=== PATIENT | male | born 1970 | race Caucasian/White ===

== ENCOUNTER 2023-12-06 21:19 | Inpatient (IN) | payer OTHER, SELFPAY ==
[2023-12-06] VITALS (7 sets, daily range): BP systolic 131–144; BP diastolic 84–91; BMI 30.9
[2023-12-06 20:03] LABS: % Basophils 0.4 % (0-2); % Eosinophils 0.8 % (0-6); % Immature Granulocytes 0.8 % (0-0.5); % Lymphocytes 32.5 % (20.5-51.1); % Monocytes 10.6 % (1.7-9.3); % Neutrophils 54.9 % (42.2-75.2); Absolute Eosinophils 0.1 10^3/uL (0-0.7); Absolute Immature Granulocytes 0.1 10^3/uL (0-0.05); Absolute Lymphocytes 2.7 10^3/uL (1.2-3.4); Absolute Monocytes 0.9 10^3/uL (0.1-0.6); Absolute Neutrophils 4.6 10^3/uL (1.4-6.5); Mean Corp Hgb Conc. 35.9 g/dL (33.0-37.0); Mean Platelet Volume 9.8 fL (7.4-10.4); Nucleated Red Blood Cells % 0 % (-); Platelet Count 307 10^3/uL (130-400); Red Blood Cell Count 4.38 10^6/uL (4.70-6.10); Red Cell Dist. Width 12.6 % (11.5-14.5); White Blood Cell Count 8.4 10^3/uL (4.8-10.8)
--- NOTE | 2023-12-06 20:14 | ED.GENMED ---
History of Present Illness
General
Chief Complaint: Cardiac Symptoms
Time Seen by Provider: 12/06/23 19:41
History of Present Illness
History of Present Illness:
53-year-old male without significant past medical history presenting to the emergency department for witnessed syncopal episode and abnormal cardiac rhythm. Patient reports he was at karate, when he became acutely dizzy and passed out. Episode was
witnessed and bystanders started CPR for concern of pulselessness. When medics arrived, patient was awake, trying to stand up. They put him on the monitor, noted that he was in a sustained ventricular tachycardia with heart rate in the 240s. He
was subsequently cardioverted with return to sinus rhythm. On arrival to the hospital, patient denies any chest pain, and denied any chest pain at time of syncope. Denies any difficulty breathing. Denies any recent illness or fever. Denies any
known family history of cardiac disease or personal history of cardiac disease. Denies ever having this issue in the past. Denies acute medical complaints.
Phy Exam
Physical Exam
Physical Exam:
General: Well-appearing, no clinical signs of dehydration, nontoxic and in no acute distress
HEENT: protecting airway
Neck: appears supple
CV: Normal heart rate, regular rhythm, no evidence of cyanosis
Resp: No accessory muscle use, no increased work of breathing, lungs clear to auscultation bilaterally
Abd: Soft and non-distended, no tenderness to palpation
Extremities: No deformities, no swelling, no erythema
Neuro: alert, no focal neurologic deficit
: deferred
Rectal: deferred
Psych: Normal affect
Skin: Intact
Course
Orders/Labs/Results
Orders:
Orders
12/06/23 19:57
Complete Blood Count/With Diff Urgent
Comprehensive Metabolic Panel Urgent
Magnesium Urgent
Phosphorus Urgent
TSH Reflex To Free T4 Urgent
Comment: ADD ON
Troponin I Urgent
12/06/23 20:22
Add On- LAB Urgent
Tests Added?: magnesium, phosphorus, TSH w/ reflex T4
12/06/23 20:45
Amiodarone [Cordarone] 150 mg Dextrose 5%/Water 100 ml [D5w] 100 ml IV NOW
Amiodarone [Cordarone] 900 mg DEXTROSE 5% PVC-free BAG [D5W PVC-free BAG] 500 ml IV NOW
Initial Dose in mg/min:: 1
Duration of initial dose (hours):: 6
Subsequent dose in mg/min:: 0.5
Duration of subsequent dose (hours):: 18
Maximum dose in mg/min:: 1
Hold and notify provider if:: Heart rate < 60 BPM or SBP < 90 mmHg or MAP < 60 mmHg
12/06/23 20:52
Chest X-ray Portable [CR Chest Portable - 1 View] Routine
Comment:
Reason For Exam: syncope, cpr
Reason Study Needs to be Portable: Unable to Transport
12/06/23 21:09
Admit/Transfer Patient As Directed
Co-Sign Provider:
Level of Care: Inpatient admission
Assign to:: ICU
Physician / Group: jatinder
Diagnosis: ventricular tachycardia
Reason for Hospitalization: ventricular tachycardia
Expected length of stay greater than two midnights?: Yes
ELOS- Estimated Length of Stay in days: 2
I certify the patient meets the requirements for IP care: Yes
Code Status As Directed
Resuscitation Status: Full Code
PRN Pain Medication Management As Directed
May give lesser potent ordered pain med per pt: Yes
preference::
Protocol:: Medication orders for pain may be administered in a
manner that supports deferring to patient preference
when the pt is:
- Requesting an ordered lesser potent pain medication.
Least to most potent pain medications are defined
as: acetaminophen < NSAID < tramadol < opioids
(morphine, oxycodone, hydromorphone).
- Requesting a lesser dose of the same medication IF
ORDERED.
- Requesting a less intrusive route of administration
if both routes are prescribed by the provider (PO <
IV).
12/06/23 21:10
Magnesium Oxide 500 mg PO NOW STA
Abnormal Lab Results
12/06/23
19:57
RBC 4.38 L 10^6/uL
(4.70-6.10)
MCH 32.0 H pg
(27.0-31.0)
Abs Immat Gran (auto) 0.1 H 10^3/uL
(0-0.05)
Absolute Monos (auto) 0.9 H 10^3/uL
(0.1-0.6)
Immature Gran % 0.8 H %
(0-0.5)
Monocytes % 10.6 H %
(1.7-9.3)
BUN 24 H mg/dl
(9-20)
Glucose 163 H mg/dl
(70-99)
Magnesium 1.4 L mg/dl
(1.6-2.3)
12/06/23 19:57
12/06/23 19:57
Vital Signs
Initial and Last Documented VS:
Initial Vital Signs
Temp Pulse Resp Pulse Ox
98.0 F 68 18 94
12/06/23 19:44 12/06/23 19:44 12/06/23 19:44 12/06/23 19:44
Last Documented Vital Signs
Temp Pulse Resp BP Pulse Ox
98.0 F 67 14 131/84 98
12/06/23 19:44 12/06/23 22:30 12/06/23 22:30 12/06/23 22:00 12/06/23 22:30
MDM/Problems Addressed
MDM/Problems Addressed:
53-year-old male without past medical history presenting after a witnessed syncopal episode, possible pulselessness, ventricular tachycardia with synchronized cardioversion. Vital signs on arrival are normal.
On exam, patient is well-appearing, denies any present chest pain or difficulty breathing. EKG obtained on patient's arrival, no STEMI criteria. Patient again with chest pain. Unclear etiology of patient's ventricular tachycardia episode, however
certainly concerning. Patient will remain on front desk monitor. Code cart at bedside. Will administer amiodarone. Will discuss with cardiology with plan for admission.
20:50 -in discussion with cardiology, advise holding off on amnio until seeing electrophysiology tomorrow, possible intervention. Advised ICU admission for continued close cardiac monitoring.
*EKG
Interpreted by ED Provider?: Yes
EKG Intrepretation Date: 12/06/23
EKG Intrepretation Time: 20:16
Interpretation: normal
Comparison EKG: no comparison EKG present
Heart Rate: 68
Rate: normal
Rhythm: sinus and PAC's
Longs: normal axis
Interval: normal interval
QRS Pattern: normal QRS
Ischemia: no ischemia
*Critical Care Note
Total Time (30-74mins, 75-104mins- exclusive of procedures): 35
comment:
The high probability of a clinically significant, sudden or life threatening deterioration of the cardiovascular system(s) required my full and direct attention, intervention and personal management. The aggregate critical care time was 35 minutes.
This time is in addition to time spent performing reported procedures but includes the following:
[x] Data Review and interpretation
[x] Patient assessment and monitoring of vital signs
[x] Documentation
[x] Medication orders and management
ED Attending Note
-
Portions of this chart may have been created with voice recognition software.� Occasional wrong word or��sound alike� substitutions may have occurred due to the inherent limitations of voice recognition software.
Discharge Plan
Departure
Patient Disposition: Admit
Date of Disposition: 12/06/23
Time of Disposition: 20:55
Presentation/result/management discussed w/ accepting MD/DO: Hospitalist
Patient with high blood pressure during this ER visit?: No
Condition: Fair
Discharge Problem:
Ventricular tachycardia, Cardiac arrest
Interventions
Interventions:
*Risk Screen - Suicide Last Done: 12/06/23 19:44
*General Assessment Last Done: 12/06/23 19:44
*Neglect/Abuse Screening Last Done: 12/06/23 19:44
ED- Fall Risk Assessment Last Done: 12/06/23 22:44
*Nursing Disposition Last Done: 12/06/23 22:44
ED- Pulmonary Assessment Last Done: 12/06/23 20:06
ED- Cardiac Assessment Last Done: 12/06/23 20:06
Discharge Date and Time
Discharge Date/Time: 12/06/23 22:44
[2023-12-06 20:27] LABS: Troponin I 0.026 ng/ml
[2023-12-06 20:36] LABS: ALT (SGPT) 23 U/L (0-50); AST (SGOT) 40 U/L (17-59); Albumin 4.4 g/dl (3.5-5.0); Alkaline Phosphatase 54 U/L (38-126); Blood Urea Nitrogen 24 mg/dl (9-20); Calcium 9.6 mg/dl (8.4-10.2); Carbon Dioxide 24 mmol/L (22-30); Chloride 99 mmol/L (98-107); Estimated Creatinine Clearance 117 ml/min; Glucose 163 mg/dl (70-99); Potassium 4.1 mmol/L (3.5-5.1); Sodium 136 mmol/L (135-145); Total Bilirubin 1.2 mg/dl (0.2-1.3); Total Protein 7.1 g/dl (6.3-8.2); eGFR > 60.00
--- NOTE | 2023-12-06 20:54 | CON.CAR ---
Addendum entered and electronically signed by Trey Root MD 12/06/23 21:09:
CV[facility] if available or ICU
Original Note:
Consultation
Consultation Request
Date/Time Consultation Requested: 12/06/2023 8 PM
Date/Time Consultation Performed: 12/06/2023 ABPM
Requesting Provider: Emergency department physician
Performing Provider: Dr. Root
Reason for Consultation: Wide-complex tachycardia
Medical History
-
History of Present Illness:
53-year-old male with no past cardiac history who was in his usual state of health today. He went to exercise at an [employer] gym he was exercising for about an hour including sparring/boxing. 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 While exercising he became
lightheaded and dizzy and put his hands on his knees and then had a syncopal event. Bystanders question if they felt a pulse and reportedly CPR was started but then patient woke up. He remembers trying to get up and feeling his heart racing.
Ambulance came and patient was noted to have wide-complex tachycardia. Heart rate to 220. Patient was awake and responsive ambulance crew shocked patient back in rhythm. He has remained in sinus rhythm and is currently without symptoms. He says
he feels a little tired but no chest pain or shortness of breath. He said no prior cardiac history no prior issues with heart racing syncope or near syncope. No family history of coronary artery disease or sudden .
Drinks 2 cups of coffee a day. He had 1 energy drink (Reign). Denies any additional supplements
Past medical history as noted above
Past Medical History
Past Medical History: None
Social History
Tobacco: Non-Smoker
Living: With Family (. Just dropped daughter off at [facility])
Family History
Family History: Reviewed & Not Pertinent
Allergies / Home Medications
Allergy/AdvReac Type Severity Reaction Status Date / Time
No Known Allergies Allergy Unverified 12/06/23 19:43
�Medication �Instructions �Recorded �Confirmed �Type
Nail Vitamin 1 tab PO DAILY 12/06/23 12/06/23 History
cholecalciferol (vitamin D3) 25 25 mcg PO DAILY 12/06/23 12/06/23 History
mcg (1,000 unit) tablet
Review of Systems
-
All other systems: Negative unless noted
Physical Exam
Vital Signs
Temp Pulse Resp BP Pulse Ox
98.0 F 72 17 138/86 96
12/06/23 19:44 12/06/23 19:47 12/06/23 19:45 12/06/23 19:47 12/06/23 19:47
Lab Results
12/06/23 19:57
12/06/23 19:57
Troponin I 0.026 ng/ml 12/06/23 19:57
Physical Exam
General: Well Developed, Well Nourished and No Apparent Distress
HEENT: Normocephalic, Anicteric and Other (Extraocular's intact pupils equal reactive to light)
Respiratory: Clear and Other (No wheezes rales or rhonchi)
Cardiac: Regular Rhythm
GI: Soft, Non Tender, Non Distended and Normal Bowel Sounds
Musculoskeletal: No Clubbing, No Cyanosis and No Edema
Skin: Warm, Dry and Rash (No rash)
Neuro: Awake and Alert
Hematologic/Lymphatic: No Lymphadenopathy
Impression / Plan
-
Wide-complex tachycardia.
-Heart rate 220
-Consistent with VT. Although patient had a syncopal episode this evening. He was awake in the ambulance when he was in VT at a rate of 220. Patient subsequently shocked back into rhythm
-Source of VT unclear.
-Patient currently in sinus rhythm. ECG with sinus rhythm QTc 440
-Reviewed with EP.
-Admit to ICU. If patient has recurrent VT then would give IV amiodarone bolus and then drip.
- Check TSH and magnesium
-serial troponins
-CXR with report of CPR
-Echocardiogram tomorrow
-Cardiac catheterization tomorrow.
-EP will assess. Patient will also likely need EPS this admission
.
Troponin - minimal elevation likely related to VT
Data Reviewed
-
EKG: Report Reviewed by me
Radiology: Other (ordered CXR)
Medical Tests (Nuc Med, Echo etc): Report Reviewed by me
Labs: Labs Reviewed by me
[2023-12-06 20:57] LABS: Magnesium 1.4 mg/dl (1.6-2.3); Phosphorus 4.5 mg/dl (2.5-4.5)
--- NOTE | 2023-12-06 21:13 | HPS.HSE ---
Family Physician
-
Family Physician: * NONE
Chief Complaint
-
syncope
History of Present Illness
53-year-old male without past medical history presenting for syncopal episode. Patient reports he was at karate when he became acutely dizzy and passed out. Episode was witnessed and bystander started CPR. When medics arrived patient was awake
and trying to stand up. He was placed on clinical research monitor and noted that he was in sustained ventricular tachycardia with heart rate in the 240s. He was subsequently cardioverted with return to sinus rhythm. On arrival to the hospital patient
denies any chest pain,
He states this morning he was having some left shoulder tightness and some shortness of breath. He denies any recent illness or fever. He denies vomiting or diarrhea. He has mild shortness of breath now. He denies any family history of cardiac
disease or personal history of cardiac disease.
He drinks alcohol occasionally on the weekends. He denies smoking or any drug use.
Denies any surgeries.
Medical History
Past Medical History
Past Medical History: Reports None
Past Surgical History: Reports None
Social History
Tobacco: Non-smoker
Alcohol: Occasional
Drug: None
Family History
Family History: Not pertinent
Allergies / Home Medications
Allergies reflects when Allergies were last updated in [facility].
Home Medications with original date entered in [facility]
Allergy/Medication List:
Allergies
Allergy/AdvReac Type Severity Reaction Status Date / Time
No Known Allergies Allergy Unverified 12/06/23 19:43
Home Medications
Nail Vitamin 1 tab PO DAILY 12/06/23
cholecalciferol (vitamin D3) 25 mcg (1,000 unit) tablet 25 mcg PO DAILY 12/06/23
Review of Systems
-
History Source: Patient
A 12 point ROS was completed and negative except as noted: Yes
Constitutional: Reports No Symptoms
EENT: Reports No Symptoms
Respiratory: Reports See HPI
Cardiac: Reports See HPI
Abdomen/GI: Reports No Symptoms
: Reports No Symptoms
Musculoskeletal: Reports No Symptoms
Skin: Reports No Symptoms
Neurological: Reports No Symptoms
Endocrine: Reports No Symptoms
Hematologic/Lymphatic: Reports No Symptoms
Psych: Reports No Symptoms
Physical Exam
Vital Signs
Vital Signs
Temp Pulse Resp BP Pulse Ox
98.0 F 72 17 138/86 96
12/06/23 19:44 12/06/23 19:47 12/06/23 19:45 12/06/23 19:47 12/06/23 19:47
Physical Exam
General: Well Developed, Well Nourished and No Apparent Distress
HEENT: NormoCephalic, Moist mucous membranes and Atraumatic
Respiratory: Clear
Cardiac: S1/S2 and Regular Rhythm; No Murmur or Rub
GI: Soft, Non Tender, Non Distended and Normal Bowel Sounds; No Organomegaly
Rectal: Deferred by Provider
Musculoskeletal: No Clubbing, No Cyanosis and No Edema
Skin: No Rash
Neuro: Nonfocal/grossly intact
Laboratory Results
-
12/06/23 19:57
12/06/23 19:57
Laboratory Results
Total Bilirubin 1.2 mg/dl (0.2-1.3) 12/06/23 19:57
AST 40 U/L (17-59) 12/06/23 19:57
ALT 23 U/L (0-50) 12/06/23 19:57
Alkaline Phosphatase 54 U/L (38-126) 12/06/23 19:57
Troponin I 0.026 ng/ml 12/06/23 19:57
Data Reviewed
-
Lab Data: Labs Reviewed by me
Old Records: Reviewed
Impression/Plan
-
IMPRESSION:
PLAN:
# Witnessed syncopal episode secondary to sustained ventricular tachycardia
-Status post bystander CPR but awake to medics
-Status post cardioversion in the field
-Troponin unremarkable
-Cardiology recommended holding off amiodarone, catheterization/ablation tomorrow
-TSH pending
-Trend troponins
-Check chest x-ray
-Check echo
-N.p.o. past midnight
# Hypomagnesemia
-Magnesium repleted
Full code
DVT prophylaxis�heparin
Regular diet, n.p.o. past midnight
[2023-12-06 21:18] LABS: TSH Reflex To Free T4 3.29 uIU/ml (0.47-4.68)
[2023-12-06] MEDS: MAGNESIUM OXIDE 500 MG PO (21:28)
[2023-12-06] MEDS: ASPIRIN 325 MG PO (22:06)
--- NOTE | 2023-12-06 22:45 | PTCARENOTE ---
Addendum entered by Abdi Morris RN 12/07/23 00:24:
To add, defibrillation pads on patient
Original Note:
admitted pt from ER into 2268. Pt walked from stretcher to bed. Pt is AOx3. NSR on monitor, EKG completed NSR. No chest pain or dizziness. Vitals stable. Lungs clear. +BS. Urinal provided. PT NPO after midnight. troponin drawn and sent . plan of
care discussed, all questions answered. pt resting comfortably in bed with call mahan within reach
[2023-12-06] MEDS: MAGNESIUM SULFATE 50 IV (23:29)
[2023-12-06 23:41] LABS: Troponin I 0.081 ng/ml
[2023-12-07] VITALS (24 sets, daily range): BP systolic 101–160; BP diastolic 57–103
--- NOTE | 2023-12-07 04:40 | PTCARENOTE ---
labs drawn and sent. EKG completed sinus kaylene. no change in assessment. pt resting comfortably with call mahan within reach .
[2023-12-07 04:42] LABS: % Basophils 0.7 % (0-2); % Eosinophils 1.1 % (0-6); % Lymphocytes 23.8 % (20.5-51.1); % Monocytes 11.2 % (1.7-9.3); % Neutrophils 62.2 % (42.2-75.2); Absolute Basophils 0.1 10^3/uL (0-0.2); Absolute Eosinophils 0.1 10^3/uL (0-0.7); Absolute Immature Granulocytes 0.1 10^3/uL (0-0.05); Absolute Lymphocytes 1.7 10^3/uL (1.2-3.4); Absolute Monocytes 0.8 10^3/uL (0.1-0.6); Absolute Neutrophils 4.4 10^3/uL (1.4-6.5); Hematocrit 38.8 % (39.0-52.0); Hemoglobin 13.8 g/dL (13.0-18.0); Mean Corp Hgb Conc. 35.6 g/dL (33.0-37.0); Mean Corpuscular Hgb 32.6 pg (27.0-31.0); Mean Corpuscular Volume 91.7 fL (80.0-94.0); Mean Platelet Volume 9.6 fL (7.4-10.4); Nucleated Red Blood Cells % 0 % (-); Platelet Count 291 10^3/uL (130-400); Red Blood Cell Count 4.23 10^6/uL (4.70-6.10); Red Cell Dist. Width 12.7 % (11.5-14.5)
[2023-12-07 04:58] LABS: APTT 32.2 Sec (23.4-35.0)
[2023-12-07 05:04] LABS: ALT (SGPT) 22 U/L (0-50); AST (SGOT) 27 U/L (17-59); Albumin 3.9 g/dl (3.5-5.0); Alkaline Phosphatase 56 U/L (38-126); Blood Urea Nitrogen 17 mg/dl (9-20); Calcium 9.2 mg/dl (8.4-10.2); Carbon Dioxide 27 mmol/L (22-30); Chloride 101 mmol/L (98-107); Estimated Creatinine Clearance > 125 ml/min; Glucose 98 mg/dl (70-99); Magnesium 2.1 mg/dl (1.6-2.3); Phosphorus 4.2 mg/dl (2.5-4.5); Potassium 4.2 mmol/L (3.5-5.1); Sodium 137 mmol/L (135-145); Total Bilirubin 1.3 mg/dl (0.2-1.3); Total Protein 6.3 g/dl (6.3-8.2); eGFR > 60.00
[2023-12-07 05:08] LABS: Troponin I 0.064 ng/ml
[2023-12-07] MEDS: VITAMIN D3 (cholecalciferol) 25 MCG PO (07:51)
[2023-12-07] MEDS: LOW STRENGTH ASPIRIN 81 MG PO (07:52)
[2023-12-07] MEDS: HEPARIN 5000 UNITS SC ×2 (07:52→20:51)
--- NOTE | 2023-12-07 08:11 | PTCARENOTE ---
pt aaox3. states no pain or sob. nsr seen on monitor. breath sounds clear. reviewed pt condition and plan of care.
--- NOTE | 2023-12-07 08:46 | W.PN.UPDATE ---
Update Note
Progress Note Update
EP Consult will be dictated
Aborted sudden cardiac arrest from rapid monomorphic VT
Abnormal troponin, uncertain etiology, certainly non-ischemic myocardial injury from rapid rates is possible but so is myocarditis
Had Shingrix vaccine last Tuesday, his second dose => I found one case report of associated myocarditis in the literature
Suggest:
- Add labs pBNP, ESR, CRP
- Cardiac cath for cor anatomy
- Echo
- Cardiac MRI
- Will consider stress testing, low sensitivity to reproduce the VT..
- If no structural heart disease we may proceed to EPS and if a favorable VT is found and successfully ablated an ICD may not be needed
- If there is structural heart disease, an unfavorable or multiple VT is induced, or pt non-inducible he will likely require an ICD
- Do not give BB or amio or other AAD for now as results of EPS will be difficult to evaluate
- Please obtain 12 lead EKG if VT develops unless he is too unstable
--- NOTE | 2023-12-07 10:35 | W.PN.HOSP.TC ---
Today's Communication/Plan
-
ECHO
Cath
MRI
monitor on tele
Assessment / Plan
Assessment / Plan
#syncopal episode secondary to sustained ventricular tachycardia
-Status post bystander CPR but awake to medics
-Status post cardioversion in the field
-TSH normal.
-Check chest x-ray and normal with fractures noted.
-Plan for echocardiogram, cardiac catheterization and cardiac MRI.
-Plan for ablation versus ICD depending on further data.
-Per cardiology to avoid beta-christi amiodarone if possible.
-Defer further management to EP.
# Elevated troponin without ACS
-Plan for cardiac cath later today
-started on aspirin. CR/proBNP pending
# Hypomagnesemia
-replete/monitor
Full code
DVT prophylaxis�heparin
Discussed with spouse at bedside in detail
d/w with cards
Anticipated Discharge: 24 - 48 hours
Subjective/Interval History
-
Date of Service: December 07, 2023
Resting in bed comfortably
Denies any chest pain
Objective Data
-
Labs:
Laboratory Results
12/07/23
04:29
WBC 7.0
Hgb 13.8
Hct 38.8 L
Plt Count 291
PT 13.0
INR 1.00
APTT 32.2
Sodium 137
Potassium 4.2
Chloride 101
Carbon Dioxide 27
BUN 17
Creatinine 0.9
Glucose 98
Calcium 9.2
Total Bilirubin 1.3
AST 27
ALT 22
Alkaline Phosphatase 56
Vital Signs:
Vital Signs
Temp Pulse Resp BP Pulse Ox
98.1 F 57 20 145/92 96
12/07/23 08:00 12/07/23 10:15 12/07/23 10:15 12/07/23 10:00 12/07/23 10:15
I&O
12/06/23 12/07/23 12/08/23
06:59 06:59 06:59
Output Total 800 / 800
Balance -800 / -800
Physical Exam
-
General: Well Developed and No Apparent Distress
HEENT: Normocephalic, Atraumatic and Moist Mucous Membranes
Respiratory: Clear to Auscultation
Cardiac: Regular Rhythm and S1/S2; Negative Murmur, Rub or Gallop
GI: Soft, Nontender, Nondistended and Normal Bowel Sounds; Negative Organomegaly
Rectal: Deferred by Provider
Musculoskeletal: No Clubbing, No Cyanosis and No Edema
Skin: Negative Rash
Neuro: Awake, AO x 3, No Motor Deficits and Nonfocal/Grossly Intact
Psych: Calm
[2023-12-07 10:48] LABS: Erythrocyte Sed Rate 9 mm/hour (0-20)
[2023-12-07 10:54] LABS: C-Reactive Protein < 5.00 mg/L (0.0-10.00)
[2023-12-07 10:58] LABS: NT-proBNP 179 pg/ml
--- NOTE | 2023-12-07 11:51 | CM ---
CM following for DC planning needs.
Attempted to meet w/ patient @ bedside but patient was sleeping soundly.
Pt. resides w/ spouse in a private home. Functionally, patient is quite indep. at baseline w/ ADLs, mobility- is active.
Will follow for DC planning needs.
--- NOTE | 2023-12-07 12:04 | PTCARENOTE ---
pt resting in bed. no cp or sob.
[2023-12-07 12:20] LABS: Troponin I 0.026 ng/ml
--- NOTE | 2023-12-07 13:35 | PTCARENOTE ---
pt taken to lab specialist
--- NOTE | 2023-12-07 14:10 | CON.INTV ---
Consultation
Consultation Request
Date/Time Consultation Requested: 12/07/2023
Date/Time Consultation Performed: 12/07/2023
Requesting Provider: Dr. Rossi
Performing Provider: Dr. Master Telles
Reason for Consultation: Status postcardiac arrest
Medical History
-
History of Present Illness:
53-year-old man with past medical history presented to the hospital after developing a syncopal episode. Apparently patient was at his karate class when suddenly became dizzy and passed out. Bystander started immediately CPR. EMS arrived and
patient was awake and trying to stand up. He was found to be in sustained ventricular tachycardia with a heart rate 240. Subsequently converted to sinus rhythm. On arrival to the hospital denying any chest pain, lightheadedness or any significant
symptoms.
Denies any recent illness.
Denies any medical problems.
Does not drink alcohol in excess.
He is a never smoker.
Denies any prior cardiac history.
No family history of sudden cardiac .
Past Medical History
Past Medical History: None
Social History
Tobacco: Non-smoker
Alcohol: None
Drug: None
Personal:
Living: With Family
Family History
Family History: Reviewed & Not Pertinent and Other (Particularly denied history of early coronary artery disease or sudden cardiac .)
Allergies / Home Medications
Allergies
Allergy/AdvReac Type Severity Reaction Status Date / Time
No Known Allergies Allergy Unverified 12/06/23 19:43
Home Medications
�Medication �Instructions �Recorded �Confirmed �Last Taken �Type
Nail Vitamin 1 tab PO DAILY Supplement 12/06/23 12/06/23 Unknown History
cholecalciferol (vitamin D3) 25 25 mcg PO DAILY Supplement 12/06/23 12/06/23 Unknown History
mcg (1,000 unit) tablet
Review of Systems
-
History Source: Patient
All other systems: Negative unless noted
Vitals / Labs / Diagnostic Testing
Vital Signs
Temp Pulse Resp BP Pulse Ox
97.9 F 64 15 144/93 96
12/07/23 12:00 12/07/23 13:00 12/07/23 13:00 12/07/23 13:00 12/07/23 12:45
Lab Data
12/07/23 04:29
12/07/23 04:29
Laboratory Results
12/07/23
04:29
PT 13.0
INR 1.00
APTT 32.2
Diagnostic Testing:
Physical Exam
-
HEENT: Normocephalic
Cardiovascular: S1/S2 and Regular Rhythm
Respiratory: Clear and Non-Labored Respirations
GI: Soft and Non Distended
Neurology: Awake, AO x 3 and No Motor Deficits
Skin: Warm
General: Comfortable
Assessment
-
53-year-old man without past medical history. 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 Immediate CPR started. Found to be in ventricular tachycardia. Cardioversion on the field resulted on conversion to sinus rhythm. Evaluation
ongoing
Witnessed syncopal episode: Brief CPR provided by bystander-found to have sustained ventricular tachycardia
Status post cardioversion on the field.
Normal proBNP
Normal CRP.
Normal TSH
Abnormal troponin-nonischemic myocardial injury
No prior prior medical history
-
Assessment and plan:
Hemodynamically stable overnight.
Initially on amiodarone but that has been discontinued
Patient asymptomatic 12/07/2023 at 3 PM.
Echocardiogram 12/07/2023: Showed normal biventricular function. No significant valvular abnormalities.
Increased troponin has cleared
Chest pain-free
Status post cardiac catheterization which showed no significant coronary artery disease. Normal LVEF.
-
Electrophysiology has evaluated the patient.
Cardiac MRI
Continue telemetry
Holding any pharmacological intervention at this point, will need EPS study. Depending on results ICD may be an option.
-
Critical care will continue to follow.
-
Family updated
--- NOTE | 2023-12-07 14:18 | ITS.CL.CATH ---
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
Cardiac Catheterization
Procedure Report:
CARDIAC CATHETERIZATION REPORT
Date of Procedure: 12/07/2023
Referring: Aime Marlow M.D.
INDICATION: Ventricular tachycardia arrest.
PROCEDURE:
1. Left heart catheterization.
2. Coronary angiography.
ACCESS:
6 [place] right radial artery.
CATHETERS:
1. 5 [place] JR4.
2. 5 [place] JL 3.5.
HEMODYNAMIC DATA
Weight (kg): 111.6
AO (s/d/x, mmHg): 137/84/107
LV (s/x mmHg): 137/10
LEFT VENTRICULOGRAPHY: Not performed.
CORONARY ANGIOGRAPHY
Dominance: Right.
Left Main: Large size, bifurcating vessel. There is no coronary artery disease.
LAD: Large size vessel wrapping around the apex of the heart. There are minor luminal irregularities in the proximal vessel.
Ramus: Congenitally absent.
Circumflex: Nondominant vessel that originates as a large trunk from the left main. Immediately after its origin, the vessel divides into 4 substantial branches supplying the entire anterior and anterolateral wall as there are no significant
diagonals. The lateralmost vessel divides more proximally than the 3 medial vessels which essentially come off a trifurcating circumflex trunk.
RCA: Large size, dominant vessel with a large posterolateral arcade. There is no coronary artery disease.
INTERVENTION(S)
None.
Closure Device: Vascular band.
Radiation (mGy): 328.73
DAP (cm2.Gy): 29.3567
Fluoroscopy time (minutes): 1.7
Sedation time (minutes): 26
CONCLUSIONS
1. Right dominant circulation with minor luminal irregularities in the LAD and a large circumflex trunk dividing into 4 substantial arteries. There is no significant coronary artery disease.
2. Normal filling pressures (LVEDP = 10 mmHg at 111.6 kg).
3. No ischemic nidus for ventricular tachycardia.
RECOMMENDATIONS:
1. Expectant management after cardiac catheterization via right radial approach.
2. Limited weight bearing on the right for one week.
3. Consider primary prevention medication in the form of high dose, high potency statin to reduce progression of luminal irregularity plaquing.
4. Cardiac MRI has been ordered to evaluate for underlying substrate of VT.
5. N.p.o. after midnight for likely EP study +/- ICD.
Copy to: Aime Marlow M.D., Maninder Amos M.D.
Harrison Holman DO, FACC, FACP
[2023-12-07 17:55] LABS: Troponin I 0.018 ng/ml
--- NOTE | 2023-12-07 20:15 | PTCARENOTE ---
assumed care of pt from previous RN. pt A&Ox4, independent w/ ADLs, resting in bed at time of assessment. sinus kaylene/SR on tele-monitor. palpable peripheral pulses. no edema noted. POX 97% on RA. abd s/n, +BS. pt voiding clear, yellow urine. cath
site stable, CDI. PIV intact. plan of care discussed w/ pt, pt in agreement. see worklist for complete nursing assessment, interventions, VS, and I&Os.
[2023-12-08] VITALS (14 sets, daily range): BP systolic 125–149; BP diastolic 74–95; BMI 27.9
[2023-12-08 05:04] LABS: Hematocrit 39.6 % (39.0-52.0); Mean Corp Hgb Conc. 35.4 g/dL (33.0-37.0); Mean Corpuscular Hgb 31.9 pg (27.0-31.0); Mean Corpuscular Volume 90.2 fL (80.0-94.0); Mean Platelet Volume 9.6 fL (7.4-10.4); Platelet Count 296 10^3/uL (130-400); Red Blood Cell Count 4.39 10^6/uL (4.70-6.10); Red Cell Dist. Width 12.7 % (11.5-14.5); White Blood Cell Count 5.6 10^3/uL (4.8-10.8)
[2023-12-08 05:13] LABS: Blood Urea Nitrogen 15 mg/dl (9-20); Calcium 9.5 mg/dl (8.4-10.2); Carbon Dioxide 28 mmol/L (22-30); Chloride 103 mmol/L (98-107); Estimated Creatinine Clearance > 125 ml/min; Glucose 98 mg/dl (70-99); Potassium 4.5 mmol/L (3.5-5.1); Sodium 137 mmol/L (135-145); eGFR > 60.00
[2023-12-08] MEDS: VITAMIN D3 (cholecalciferol) 25 MCG PO (08:12)
[2023-12-08] MEDS: LOW STRENGTH ASPIRIN 81 MG PO (08:12)
[2023-12-08] MEDS: HEPARIN 5000 UNITS SC ×2 (08:12→19:49)
--- NOTE | 2023-12-08 08:15 | PTCARENOTE ---
Assumed care of patient. Walking rounds completed. Pt assessed while he was sitting in the chair. Pt alert and oriented x4. Denies pain, shortness of breath, and nausea. Independent in the room. NSR on tele with rates in the 60s. BP stable 144/91.
Bilateral radial and DP pulses palpable. No edema noted. POX 96% on RA. Lungs clear. no cough. Abdomen soft, nontender. +BS. Pt voiding independently in the toilet. Reports no issues. Right radial cath site intact. Left wrist 18g PIV intact. See MAR
for medication administration. See worklist for complete nursing assessment. Plan of care reviewed and patient in agreement.
--- NOTE | 2023-12-08 08:35 | PTCARENOTE ---
Pt transported to MRI with RN.
--- NOTE | 2023-12-08 10:12 | W.PN.HOSP.TC ---
Today's Communication/Plan
-
Cardiac MRI
EP study
+/- ICD
Assessment / Plan
Assessment / Plan
#syncopal episode secondary to sustained ventricular tachycardia
-Status post bystander CPR but awake to medics
-Status post cardioversion in the field
-TSH normal.
-Check chest x-ray and normal with no fractures noted.
-Chronic and has been known obstructive coronary artery disease.
-MRI planned for today.
-Echo with normal biventricular size and function without regional wall motion abnormality. No significant valvular disease.
-Plan for ablation versus ICD depending on further data.
-Per cardiology to avoid beta-christi amiodarone if possible.
-Defer further management to EP.
-Post EP procedure and consider transfer out to IVU if okay with cardiology.
# Elevated troponin likely secondary V. tach and CPR
-Catheter nonobstructive coronary artery disease
# Hypomagnesemia
-replete/monitor
Full code
DVT prophylaxis�heparin
Anticipated Discharge: > 48 hours
Subjective/Interval History
-
Date of Service: December 08, 2023
deneis cp or palpaptions
Objective Data
-
Labs:
Laboratory Results
12/08/23
04:38
WBC 5.6
Hgb 14.0
Hct 39.6
Plt Count 296
Sodium 137
Potassium 4.5
Chloride 103
Carbon Dioxide 28
BUN 15
Creatinine 0.8
Glucose 98
Calcium 9.5
Vital Signs:
Vital Signs
Temp Pulse Resp BP Pulse Ox
97.6 F 64 14 144/91 97
12/08/23 08:00 12/08/23 08:18 12/08/23 08:00 12/08/23 08:18 12/08/23 08:18
I&O
12/07/23 12/08/23 12/09/23
06:59 06:59 06:59
Intake Total 450 / 450
Output Total 800 / 800
Balance -800 / -800 450 / 450
Physical Exam
-
General: Well Developed and No Apparent Distress
HEENT: Normocephalic, Atraumatic and Moist Mucous Membranes
Respiratory: Clear to Auscultation
Cardiac: Regular Rhythm and S1/S2; Negative Murmur, Rub or Gallop
GI: Soft, Nontender, Nondistended and Normal Bowel Sounds; Negative Organomegaly
Rectal: Deferred by Provider
Musculoskeletal: No Clubbing, No Cyanosis and No Edema
Skin: Negative Rash
Neuro: Awake, AO x 3, No Motor Deficits and Nonfocal/Grossly Intact
Psych: Calm
--- NOTE | 2023-12-08 11:23 | PTCARENOTE ---
Pt returned from MRI. VSS. Hospitalist at bedside. No acute changes from previous assessment.
--- NOTE | 2023-12-08 14:11 | W.PN.CD ---
Today's Communication / Plan
-
- Cardiac MRI today
- Dual chamber ICD today
- Start Toprol 50 mg BID post implant.
Impression / Plan
-
Cardiac arrest
- Exercise induced VT
- Fast VT noted - 220 bpm.
- Consistent with VT. Although patient had a syncopal episode this evening. He was awake in the ambulance when he was in VT at a rate of 220. Patient subsequently shocked back into rhythm
- s/p Amiodarone. Will start Metoporlol once the ICD is in place to avoid bradycardia. Bradycardia with exercise is a potential trigger for exercise induced VT.
- Will avoid halfway Amiodarone for now.
- Work up has been non diagnostic
- SCD is concerning - Possible exercise induced VT vs Catecholaminergic�PMVT
- Echocardiogram 12/07/23: Normal biventricular size and systolic function without regional wall motion abnormality. No significant valvular disease.
- Cardiac catheterization - 12/07/23; Right dominant circulation with minor luminal irregularities in the LAD and a large circumflex trunk dividing into 4 substantial arteries. There is no significant coronary artery disease.
- Cardiac MRI - today
- Given cardiac arrest. EP study is of little value as the negative EP study would not change the management plan. Would recommend proceeding with ICD placement.
- Discussed with his and with patient as well. Both are in agreement to proceed with the ICD placement.
.
Physical Exam
Vital Signs/Labs
Vital Signs
Temp Pulse Resp BP Pulse Ox
97.8 F 58 16 144/95 99
12/08/23 11:14 12/08/23 12:00 12/08/23 11:14 12/08/23 11:14 12/08/23 11:14
12/07/23 12/08/23 12/09/23
06:59 06:59 06:59
Actual Weight 112 kg 101.4 kg
12/08/23 04:38
12/08/23 04:38
PT 13.0 Sec (11.4-14.6) 12/07/23 04:29
INR 1.00 12/07/23 04:29
APTT 32.2 Sec (23.4-35.0) 12/07/23 04:29
Magnesium 2.1 mg/dl (1.6-2.3) 12/07/23 04:29
12/07/23
04:34
[id number]-[id number] Pept 179
LAB Results
12/06/23 12/06/23 12/07/23
19:57 23:04 04:29
Troponin I 0.026 0.081 H* D 0.064 H*
12/07/23 12/07/23
11:34 17:18
Troponin I 0.026 D 0.018 D
Physical Exam
Constitutional: No acute distress and Comfortable
EENT: Anicteric and Moist mucous membranes
Cardiovascular: Rhythm & rate is regular, Pedal edema is absent, JVD pressure is normal and Systolic murmur absent
Respiratory: Respiratory effort normal, Lungs clear to auscul. and Wheeze Absent
GI: Soft, Distention absent, Non tender and Normal bowel sounds
Neuro/Psych: Alert, Oriented and AO x 3
Other: Cath Site
Data Reviewed
-
Date of Service: December 08, 2023
Medical Decision Making: Reviewed Test Results, Independent Historian Assessment and Review of Case with other Provider
EKG: Tracing Personally Visualized and interpreted
Echo: Report Reviewed by me
X-Ray/CT/US/MRI/NUC/PET: Image Personally Visualized and interpreted
Labs: Labs Reviewed by me
Old Records: Reviewed
Critical Care Time (in minutes): 35
--- NOTE | 2023-12-08 14:23 | W.PN.INTV ---
Today's Communication / Plan
Recommendations
Continue to monitor
Management per cardiology
Assessment
-
53-year-old man without past medical history. 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 Immediate CPR started. Found to be in ventricular tachycardia. Cardioversion on the field resulted on conversion to sinus rhythm. Evaluation
ongoing
Witnessed syncopal episode: Brief CPR provided by bystander-found to have sustained ventricular tachycardia
Status post cardioversion on the field.
Normal proBNP
Normal CRP.
Normal TSH
Abnormal troponin-nonischemic myocardial injury
No prior prior medical history
-
Assessment and plan:
Hemodynamically stable overnight. As of 12/08/2023 no further arrhythmias.
Patient is asymptomatic.
Echocardiogram 12/07/2023: Showed normal biventricular function. No significant valvular abnormalities.
Increased troponin has cleared
Status post cardiac catheterization which showed no significant coronary artery disease. Normal LVEF.
-
Electrophysiology following the patient.
-
Cardiac MRI: Noted-1. Moderate subepicardial enhancement in the anterior, anteroseptal, inferoseptal, and inferior rushing of the left ventricular base and mid left ventricle involving up to 50% of the myocardial thickness. The epicardial
distribution of the enhancement is most suggestive of MYOCARDITIS. Cardiac sarcoidosis is considered less likely.
2. Global systolic LV function: Mildly impaired.
3. Global systolic RV function: Normal.
4. Valvular disease: None.
5. Mild bilateral hilar lymphadenopathy.
6. Multiple enhancing hepatic lesions (probably multiple hepatic hemangiomas given the enhancement pattern of the lesions).
-
Continue telemetry
Patient for ICD placement today.
Defer management to electrophysiology/cardiology.
-
Critical care will continue to follow, cardiac monitoring.
-
Family updated by Dr. Telles 12/07/2023
Subjective Dataa
Subjective Data
Date of Service:
Date of Service: December 08, 2023
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
Subjective:
Patient has no complaints from
Stable overnight. No further arrhythmias.
Review of Systems
Cardiopulmonary: Dyspnea (n), Dyspnea on Exertion (n) and Chest Pain (n)
GI: Abdominal Pain (n) and Nausea (n)
Objective Data
Data Reviewed
Vital Signs / I&O / Oxygen:
Vital Signs
Temp Pulse Resp BP Pulse Ox
97.8 F 58 16 144/95 99
12/08/23 11:14 12/08/23 12:00 12/08/23 11:14 12/08/23 11:14 12/08/23 11:14
Intake and Output
12/07/23 12/08/23 12/09/23
06:59 06:59 06:59
Intake Total 450 / 450
Output Total 800 / 800
Balance -800 / -800 450 / 450
SaO2 99
Physical Exam
General: Comfortable
HEENT: Normocephalic
Cardiovascular: S1-S2
Respiratory: Clear and Non-Labored Respirations
GI: Soft and Non Distended
Neurology: Awake, Oriented, AO x 3 and No Motor Deficits
Labs/Micro/Reports
Lab Data
12/08/23 04:38
12/08/23 04:38
--- NOTE | 2023-12-08 15:21 | ITS.CL.ICD ---
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
Implantable Cardioverter Defibrillator
Procedure Report:
Dual Chamber Implantable Cardioverter Defibrillator Placement:
Mr. Dempsey is a 53-year-old male with out of hospital cardiac arrest with sustained VT at 220 bpm has noted to have baseline bradycardia and PACs. He has a class I indication for pacemaker for sick sinus syndrome and is getting ICD for secondary
prevention for his ventricular tachycardia.
Secondary prevention ICD. Ventricular tachycardia with sustained VT and syncope and sinus bradycardia
Indications: Sick sinus syndrome with ventricular tachycardia.
Date of the Procedure:
12/08/2023
Pre-Operative Diagnosis: sick sinus syndrome with ventricular tachycardia.
Post-Operative Diagnosis: Ventricular tachycardia and sick sinus syndrome
Procedure Performed: DUAL CHAMBER IMPLANTABLE CARDIOVERTER DEFIBRILLATOR IMPLANTATION
Performing Physician:
Maninder Amos MD
Anesthesia:
See anesthesia report
Detailed Description of the Procedure:
The patient was identified using hospital identification and informed consent obtained for the procedure. The risks were explained including, but not limited to: Bleeding, infection, arrhythmia, stroke, vascular/cardiac/lung puncture, surgery,
pacemaker dependency/device malfunction. All questions were answered.
The patient was brought to the electrophysiology laboratory in stable condition in fasting state. Continuous electrocardiographic and hemodynamic monitoring was initiated. The initial rhythm was normal sinus.
The procedure site was meticulously prepared with surgical scrub and allowed to dry with no pooling. Sterile draping was applied to cover the procedure site. The image intensifier was draped with sterile bag and positioned over the patient.
The left infra-clavicular region was prepped and draped in the usual sterile fashion. Local anesthesia was administered subcutaneously using 1% lidocaine / Bupivacaine. The left cephalic vein cut-down was performed with an incision at the
delto-pectoral groove, and vascular sheaths were introduced for lead access. These were advanced into the right ventricle and the right atrium.
The right ventricular lead was secured in position with an active fixation technique at the apical septal location.
The RA lead was attached in the right atrial appendage with active fixation.
There was excellent sensing, pacing, and impedance from the leads, with no diaphragmatic stimulation at 10 V output.�Bovie cautery, antibiotics, and fluoroscopy were used.
The sheath was withdrawn, and the thresholds remained acceptable. The lead was secured in position at the venous entry site with 2-0 Ethibond. A pocket was fashioned contiguous to the incision. The electrode terminals were connected to the pulse
generator, which was placed into the pocket. The wound was irrigated thoroughly with antibiotic solution and closed in 3 layers using 2-0 VLoc sutures followed by 2 layers of 4-0 V-loc sutures. Steri-Strips and a bandage were applied externally.�
Procedure End:
The procedure was tolerated well. A bandage was applied to the incision area.
Estimated Blood loss:
5 cc
Fluoro time:
0.9min / 3.0 mGy
Specimens Removed:
No cultures and no specimens were obtained. No intraoperative pathology was identified.
Urine output:
None
Packs / Drains/ Tubes:
None
Instrument / Sponge Count Correct:
Yes
Complications of the Procedure:
None
Condition of Patient at Time of Transfer:
Hemodynamically stable with no neurological or vascular compromise.
Device information:�
Generator: GOOD; Model: [id number]; Serial # [id number]�
Atrial Lead: GOOD; Model: 5076-52; Serial # [id number]�
Measured data in the right atrium was sensing of 4.5 mV, impedance of 660 ohms and threshold of 0.75 V at 0.4ms�
RV Lead: Medtuul; Model: 6935M-62; Serial # [id number]
Measured data in the RV lead was sensing of 5 mV, impedance of 660 ohms and threshold of 0.75 V at 0.4ms�
PROGRAMMING PARAMETERS:�
Romel parameter settings were AAIR <=>DDDR 50-130 bpm. �
��������������� Mode switch: On
��������������� Paced AV delay: 130 ms
��������������� Sensed AV delay: 100 ms
��������������� Rate Adaptive A-V Interval: Off
Output parameters:
������������������������������� Amplitude (V)������������������� Pulse Width (ms)������������� Sensitivity (mV)
��������������� RA: ������� 3.5 ������������������������ ��������������� 0.4������������������������� ��������������� 0.3
��������������� RV:�������� 3.5������������������������� ��������������� 0.4������������������������� ��������������� 0.3
Tachy parameter settings:
��������������� SVT discrimination: On
��������������� AF/AFl: On
��������������� SVT limit: 260 msec
��������������� VT zone:
������������������������������� Slow VT: 160 - 188 bpm --> Monitor
������������������������������� Fast VT: 188-207 bpm --> ATP then Shock
������������������������������� VF: >207 bpm --> Shock x6 (ATP before and during)
�
Summary:
Successful implantation of MRI compatible dual chamber Medtronic implantable Cardioverter Defibrillator.�
Results/Recommendations:
-Please follow up CXR�
1. Please provide patient with adequate pain control�
Instructions to be given to patient:�
- Please follow up with [facility] at [address] [place] [address] ([phone]) to get your wound checked within 14 days of your discharge.
- Do not soak incision site until after it is evaluated at cardiology clinic. OK to showers followed by dab dry the area. No baths or swimming until then. Sponge baths are OK.�
- Allow 'steri strips' to fall off on their own�
- Do not lift left elbow above shoulder, particularly with sudden jerking movements, for 1 month�
- Do not lift anything weighing more than 5 pounds with the left arm for 1 month�
- If you notice any fevers, shortness of breath, lightheadedness, chest pain, or worsening swelling in the wound site, please contact the arrhythmia clinic, contact your senior network architect, or present to the hospital for evaluation.�
Maninder Amos MD
Electrophysiology
--- NOTE | 2023-12-08 15:30 | PTCARENOTE ---
Pt returned from EP lab. A-paced on tele with rates in the 60s. BP stable. POX 97% on RA. Pt alert and oriented x4. Denies pain. Left chest wall PPM site covered with Aquacel-CDI. Sling intact. Pt instructed on bedrest orders for 1 hour. And other
PPM education. Post op EKG completed.
[2023-12-08] MEDS: TOPROL XL 50 MG PO (16:30)
[2023-12-08] MEDS: ANCEF 5 IV (19:49)
--- NOTE | 2023-12-08 21:00 | PTCARENOTE ---
Assumed care of pt from daysleonor RN. Walking rounds completed. Pt AAOx3. Pt going between SR and A-paced on the tele monitor. HR 60s. BP stable. Palpable pulses throughout. No edema noted. Pt on RA. POX 98%. Lung sounds clear. Deep breathing
encouraged. Left upper chest PPM site intact w/ Aquacel. Left arm sling intact. Left radial cath site CDI. Pt independent/OOB ad chyna. Using call mahan appropriately. No c/o pain at this time.
[2023-12-08] MEDS: TYLENOL 650 MG PO (23:58)
--- NOTE | 2023-12-09 00:30 | PTCARENOTE ---
No acute changes in assessment. Pt SR on the tele monitor w/ occasional a-pacing. HR 60s. BP stable. Pt on RA. Left upper chest PPM site CDI. Left arm sling in place. Pt OOB to void as needed. See MAR for pain medication administration. Call mahan
within reach.
[2023-12-09] MEDS: ANCEF 5 IV (04:09)
[2023-12-09 04:13] VITALS: BP 136/94
[2023-12-09 04:39] LABS: Hematocrit 40.3 % (39.0-52.0); Hemoglobin 14.4 g/dL (13.0-18.0); Mean Corp Hgb Conc. 35.7 g/dL (33.0-37.0); Mean Corpuscular Hgb 32.2 pg (27.0-31.0); Mean Corpuscular Volume 90.2 fL (80.0-94.0); Mean Platelet Volume 9.6 fL (7.4-10.4); Platelet Count 275 10^3/uL (130-400); Red Blood Cell Count 4.47 10^6/uL (4.70-6.10); Red Cell Dist. Width 12.6 % (11.5-14.5); White Blood Cell Count 7.6 10^3/uL (4.8-10.8)
--- NOTE | 2023-12-09 04:47 | PTCARENOTE ---
Previous assessment unchanged. Pt A-paced on the monitor. HR 60. BP stable. Pt on RA. Left upper chest PPM Aquacel CDI. Left arm sling intact. Labs drawn and sent. EKG obtained. Pt OOB ad chyna to void. Call mahan within reach.
[2023-12-09 05:17] LABS: Blood Urea Nitrogen 18 mg/dl (9-20); Calcium 9.6 mg/dl (8.4-10.2); Carbon Dioxide 25 mmol/L (22-30); Chloride 102 mmol/L (98-107); Estimated Creatinine Clearance > 125 ml/min; Glucose 105 mg/dl (70-99); Magnesium 2.1 mg/dl (1.6-2.3); Potassium 4.6 mmol/L (3.5-5.1); Sodium 137 mmol/L (135-145); eGFR > 60.00
--- NOTE | 2023-12-09 07:00 | PTCARENOTE ---
Bedside walking rounds report received. Patient seen on rounds ambulating in room ad chyna. Oriented x 3. Denies pain. Dr. Marlow here and instructed patient on driving restrictions ([place] law states no driving for 6months) post AICD/pacer and arm/weight
restrictions. Patient demonstrated understanding. See flow record for remaining assessments. Currently A pacing 1:1 on monitor at 60bpm.
[2023-12-09 08:00] VITALS: BMI 27.8
[2023-12-09 08:09] VITALS: BP 137/88
[2023-12-09 08:11] VITALS: BP 137/88
[2023-12-09] MEDS: HEPARIN 5000 UNITS SC (08:15)
[2023-12-09] MEDS: LOW STRENGTH ASPIRIN 81 MG PO (08:16)
[2023-12-09] MEDS: VITAMIN D3 (cholecalciferol) 25 MCG PO (08:16)
[2023-12-09] MEDS: TOPROL XL 50 MG PO (08:16)
--- NOTE | 2023-12-09 10:44 | W.PN.UPDATE ---
Update Note
Progress Note Update
CXR, EKG, tele, ICD site all good.
MRI is suggestive of myocarditis.
Home on metoprolol, f/u in our office arranged.
I have arranged for him to see [facility]/myocardial disease team. They will reach out to him for appointment. He knows no driving for 6 months based on syncopal VT.
No indication for ASA.
--- NOTE | 2023-12-09 10:59 | W.PN.HOSP.TC ---
Today's Communication/Plan
-
po bb
op EP f/u
Assessment / Plan
Assessment / Plan
#syncopal episode secondary to sustained ventricular tachycardia
-Status post bystander CPR but awake to medics
-Status post cardioversion in the field
-TSH normal.
-Check chest x-ray and normal with no fractures noted.
-Chronic and has been known obstructive coronary artery disease.
-MRI Moderate subepicardial enhancement in the anterior, anteroseptal, inferoseptal, and inferior rushing of the left ventricular base and mid left ventricle involving up to 50% of the myocardial thickness. The epicardial distribution of the
enhancement is most suggestive of MYOCARDITIS. Cardiac sarcoidosis is considered less likely.
-Echo with normal biventricular size and function without regional wall motion abnormality. No significant valvular disease.
-s/p ICD on 12/07. Started on metoprolol 50 mg. Heart rate stable. Chest x-ray negative for post ICD implantation.
# Elevated troponin likely secondary V. tach and CPR
-Catheter nonobstructive coronary artery disease
-Nonischemic myocardial injury
# Hypomagnesemia
-replete/monitor
Full code
DVT prophylaxis�heparin
Discussed with cardiology Dr. Marlow who recommended patient do not drive for 6 months as patient with cardiovascular/ventricular tachycardia later syncopal episode. Patient
d/w cardiology okay for discharge.
More than 30 minutes spent in discharge including
Final examination of the patient
Summarizing hospital stay
Instructions for continuing care to all relevant caregivers
Preparation of discharge records, prescriptions, and referral forms
Total time spent (in minutes): 53
Anticipated Discharge: Today
Subjective/Interval History
-
Date of Service: December 09, 2023
mild discomfort at ICD site
no chest pain or palpations
Objective Data
-
Labs:
Laboratory Results
12/09/23
04:22
WBC 7.6
Hgb 14.4
Hct 40.3
Plt Count 275
Sodium 137
Potassium 4.6
Chloride 102
Carbon Dioxide 25
BUN 18
Creatinine 0.8
Glucose 105 H
Calcium 9.6
Vital Signs:
Vital Signs
Temp Pulse Resp BP Pulse Ox
98 F 61 18 137/88 98
12/09/23 08:11 12/09/23 10:00 12/09/23 08:11 12/09/23 08:11 12/09/23 08:11
I&O
12/08/23 12/09/23 12/10/23
06:59 06:59 06:59
Intake Total 450 / 450 240 / 240 350 / 350
Balance 450 / 450 240 / 240 350 / 350
Physical Exam
-
General: Well Developed and No Apparent Distress
HEENT: Normocephalic, Atraumatic and Moist Mucous Membranes
Respiratory: Clear to Auscultation
Cardiac: Regular Rhythm, S1/S2 and Other (ICD site covered in dressing-no swelling noted ); Negative Murmur, Rub or Gallop
GI: Soft, Nontender, Nondistended and Normal Bowel Sounds; Negative Organomegaly
Rectal: Deferred by Provider
Musculoskeletal: No Clubbing, No Cyanosis and No Edema
Skin: Negative Rash
Neuro: Awake, AO x 3, No Motor Deficits and Nonfocal/Grossly Intact
Psych: Calm
--- NOTE | 2023-12-09 11:01 | CM ---
CM following for DC planning needs.
Met w/ patient at bedside. He reports that he is feeling well and is hopeful for DC soon.
There are no anticipated DC planning needs.
Plan is for home, no needs. Will remain avail for any needs that may arise.
--- NOTE | 2023-12-09 11:18 | W.DCSUMMARY ---
Discharge Summary
Discharge Data
Date of Admission: 12/06/23
Date of Discharge: 12/09/23
-
Pending Results: No
Hospital Course
53-year-old male no significant past medical history is presenting after syncopal episode. Initially patient with cardiac arrest status post CPR. EMS found patient to be in ventricular tachycardia status post cardioversion. Patient was admitted
to ICU. Troponins down trended. Patient with no further episode of ventricular tachycardia. TSH was normal. Chest x-ray was negative for any rib fractures. Patient echo with normal biventricular size and function without regional wall motion
abnormality. No significant valvular disease. Underwent cardiac cath which was with nonobstructive coronary artery disease. Underwent MRI of the heart. MRI Moderate subepicardial enhancement in the anterior, anteroseptal, inferoseptal, and
inferior rushing of the left ventricular base and mid left ventricle involving up to 50% of the myocardial thickness. The epicardial distribution of the enhancement is most suggestive of MYOCARDITIS. Cardiac sarcoidosis is considered less likely.
Patient was followed by manager golf and patient underwent dual-chamber ICD placement. Post ICD placement patient was started on metoprolol. Patient heart rate and blood pressure was well-controlled. Patient will need to follow-up with
[facility] myocarditis team. Per cardiology patient cannot drive for 6 months. [facility] initial reporting form was completed and told RN to fax it over. Patient verbalized understanding, not to drive.
Discharge Plan
-
Patient Disposition: Home (Routine Discharge)
Discharge Diagnosis/Procedures: Syncope secondary ventricular tachycardia status post cardiac catheterization, ICD implant 12/07
Condition: Fair
Diet: Regular
Driving Restrictions: No driving
Bathing Restrictions: OK to Shower
Activity Restrictions/Additional Instructions:
Do not soak incision site until after it is evaluated at cardiology clinic. OK to showers followed by dab dry the area. No baths or swimming until then. Sponge baths are OK.�
- Allow 'steri strips' to fall off on their own�
- Do not lift left elbow above shoulder, particularly with sudden jerking movements, for 1 month�
- Do not lift anything weighing more than 5 pounds with the left arm for 1 month�
- If you notice any fevers, shortness of breath, lightheadedness, chest pain, or worsening swelling in the wound site, please contact the arrhythmia clinic, contact your genetic supervisor, or present to the hospital for evaluation.�
Stand Alone Forms: DC Instructions- Cath/EP Lab, DC Inst - Implanted Device
Referrals:
Earnest Kowalski MD [Active] - 12/16/23 2:20 pm (Incision check appointment)
Prescriptions:
New
metoprolol succinate 50 mg Tablet Extended Release 24 Hr
50 mg PO DAILY 30 Days Qty: 30 0RF
Continued
cholecalciferol (vitamin D3) 25 mcg (1,000 unit) Tablet
25 mcg PO DAILY
Nail Vitamin
1 tab PO DAILY
Discharge Orders:
Discharge Patient (As Directed); Ordered 12/09/23
Ordered By: Altaf Rossi
Care Plan Goals
Care Plan Goals:
Problem: Readiness for enhanced knowledge related to diagnosis and treatment plan
Goal: Understand your diagnosis and treatment plan needs, including medications if applicable.
Instructions: Know your diagnosis, underlying causes and treatment plan options, including medications if applicable. Consult with your health care team to learn about your diagnosis and treatment plan, including medications if applicable.
Discharge Date and Time
Discharge Date/Time: 12/09/23 12:36
Print Language: GREENLANDIC
[2023-12-09 11:55] VITALS: BP 150/83
--- NOTE | 2023-12-09 11:58 | PTCARENOTE ---
Pt states full understanding of discharge instructions - has no further questions at this time. [employer] driving restriction form filled out by MD Rossi and completed at bedside - faxed to [employer] and original copy left on chart. VSS. PIVx1 removed. Pt
belongings w/ pt at bedside. 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
== END 2023-12-09 12:36 | disposition home or self-care (01) | DRG 277 ==
LOC: CVICU 21:19
PROVIDERS: Internal Medicine Cardiovascular Disease; Nurse Practitioner; Nurse Practitioner Adult Health; Nurse Practitioner Family; ADMITTING PHYSICIAN Hospitalist; ATTENDING PHYSICIAN Hospitalist; CONSULT PHYSICIAN Internal Medicine Cardiovascular Disease; CONSULT PHYSICIAN Internal Medicine Critical Care Medicine; EMERGENCY PHYSICIAN Student in an Organized Health Care Education/Training Program; OTHER PHYSICIAN Internal Medicine Cardiovascular Disease
PROC: B2111ZZ Fluoroscopy of Multiple Coronary Arteries using Low Osmolar Contrast (ICD-10-PCS; 2023-12-07)
PROC: 4A023N7 Measurement of Cardiac Sampling and Pressure, Left Heart, Percutaneous Approach (ICD-10-PCS; 2023-12-07)
PROC: 02HK3KZ Insertion of Defibrillator Lead into Right Ventricle, Percutaneous Approach (ICD-10-PCS; 2023-12-08)
PROC: 02H63KZ Insertion of Defibrillator Lead into Right Atrium, Percutaneous Approach (ICD-10-PCS; 2023-12-08)
PROC: 0JH608Z Insertion of Defibrillator Generator into Chest Subcutaneous Tissue and Fascia, Open Approach (ICD-10-PCS; 2023-12-08)
DX: I47.29 Other ventricular tachycardia (principal); I5A Non-ischemic myocardial injury (non-traumatic); E83.42 Hypomagnesemia; I25.10 Atherosclerotic heart disease of native coronary artery without angina pectoris; I51.4 Myocarditis, unspecified; I46.2 Cardiac arrest due to underlying cardiac condition; I49.5 Sick sinus syndrome; R55 Syncope and collapse
CPT/HCPCS: 33249; 71045; 75561; 80048; 80053; 83735; 83880; 84100; 84443; 84484; 85025; 85027; 85610; 85652; 85730; 86140; 93005; 93306; 93458; 99152; 99291; A9585; C1721; C1777; C1892; C1894; C1898; Q9950; Q9967